=== PATIENT | female | born 1945 | race Caucasian/White ===

== ENCOUNTER 2018-03-19 12:00 | Day surgery (SDC) | payer OTHER ==
[~2018-03-19 12:00] MED LIST: ARICEPT5 MG PO; CARAFATE SU1 G/10 ML PO; GABAPENTIN100 MG PO
== END 2018-03-19 21:00 | disposition home or self-care (01) ==
LOC: CIR.AMB 12:00
DX: M75.22 Bicipital tendinitis, left shoulder (principal); M75.122 Complete rotator cuff tear or rupture of left shoulder, not specified as traumatic; M24.122 Other articular cartilage disorders, left elbow; M24.112 Other articular cartilage disorders, left shoulder